=== PATIENT | male | born 1960 | race Caucasian/White ===

== ENCOUNTER 2021-04-24 10:55 | Emergency (ER) | payer BC, MEDICAID ==
[2021-04-24 11:30] VITALS: BP 137/86; PULSE 95
--- NOTE | 2021-04-24 11:33 | EDM.PDOCBH ---
ED HPI GENERAL MEDICAL PROBLEM - General Chief Complaint: Drug or Alcohol Abuse Stated Complaint: ALCOHOL WITHDRAWAL Time Seen by Provider: 04/24/21 11:30 Source of Information: Reports: Patient, Family History Limitations: Reports: No Limitations - History of Present Illness INITIAL COMMENTS - FREE TEXT/NARRATIVE: 60-year-old male with chronic problems with alcohol abuse, has been through detox and treatment in the past but has been drinking "off-and-on" for the past 2 years but is having trouble with inability to stop over the past several weeks. He is interested in going into detox. No other drug use, no other medical problems. Last drink was 24 hours ago, he is feeling nauseous and somewhat shaky. Onset: Unknown/Unsure Duration: Chronic - Related Data Allergies Allergy/AdvReac Type Severity Reaction Status Date / Time No Known Allergies Allergy Verified 04/24/21 11:30 Home Meds: Home Meds NK [No Known Home Meds] 04/24/21 [History] Past Medical History - Past Health History Medical/Surgical History: Denies Medical/Surgical History HEENT History: Reports: Impaired Vision Cardiovascular History: Reports: Hypertension Respiratory History: Reports: Sleep Apnea Gastrointestinal History: Reports: Other (See Below) Other Gastrointestinal History: barretts Genitourinary History: Reports: None Psychiatric History: Reports: Addiction Immunologic History: Reports: Other (See Below) Other Immunologic History: alcoholic hepatitis - Infectious Disease History Infectious Disease 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 Denies: Fever, Chills HEENT: Denies: Vision Change Respiratory: Denies: Shortness of Breath Cardiovascular: Denies: Chest Pain GI/Abdominal: Reports: Nausea. Denies: Flatus, Vomiting Musculoskeletal: Reports: No Symptoms Skin: Reports: No Symptoms Neurological: Reports: Headache (Mild headache) ED EXAM, BEHAVIORAL HEALTH - Physical Exam Exam: See Below Exam Limited By: No Limitations General Appearance: Alert, Anxious Eye Exam: Bilateral Eye: Normal Inspection (No jaundice) Head: Atraumatic Neck: Supple, Non-Tender Respiratory/Chest: Lungs Clear Cardiovascular: Regular Rate, Rhythm. No: Tachycardia GI/Abdominal: Soft, Non-Tender Extremities: Normal Inspection. No: Pedal Edema Neurological: Alert, No Motor/Sensory Deficits, Oriented x 3 Psychiatric: Alert, Restless Skin Exam: Warm, Dry COURSE, BEHAVIORAL HEALTH COMP - Course Vital Signs: Last Vital Signs Temp 96.0 F L 04/24/21 11:19 Pulse 95 04/24/21 11:19 Resp 16 04/24/21 11:19 BP 137/86 04/24/21 11:19 Pulse Ox 98 04/24/21 11:19 Orders, Labs, Meds: Laboratory Tests 04/24/21 04/24/21 04/24/21 Range/Units 11:40 11:41 12:21 Urine Opiates Screen Negative (NEGATIVE) Ur Oxycodone Screen Negative (NEGATIVE) Urine Methadone Screen Negative (NEGATIVE) Ur Propoxyphene Screen Negative (NEGATIVE) Ur Barbiturates Screen Negative (NEGATIVE) Ur Tricyclics Screen Negative (NEGATIVE) Ur Phencyclidine Scrn Negative (NEGATIVE) Ur Amphetamine Screen Negative (NEGATIVE) U Methamphetamines Scrn Negative (NEGATIVE) Urine MDMA Screen Negative (NEGATIVE) U Benzodiazepines Scrn Negative (NEGATIVE) U Cocaine Metab Screen Negative (NEGATIVE) U Marijuana (THC) Screen Negative (NEGATIVE) Ethyl Alcohol 94 mg/dL SARS CoV-2 RNA Rapid DYLON Negative Medications Discontinued Medications Generic Name Dose Route Start Last Admin Trade Name Gibran PRN Reason Stop Dose Admin Ondansetron HCl 4 mg 04/24/21 11:37 04/24/21 11:42 Ondansetron 4 Mg Tab.Dis PO 04/24/21 11:38 4 mg ONETIME ONE Administration Re-Assessment/Re-Exam: Urine drug screen, EtOH and rapid Covid were obtained. This patient is a good candidate for detox physically. EtOH is 0.094, Covid is negative. His significant other is going to transport him to [place] for detox and possible treatment. Departure - Departure Time of Disposition: 13:11 Disposition: Home, Self-Care 01 Clinical Impression: Alcohol abuse - Discharge Information Instructions: Alcohol Use Disorder Referrals: Terrence Roman NP [Primary Care Provider] - Forms: ED Department Discharge Care Plan Goals: Go directly out to [place] to be admitted for detox and possibly extended treatment. Sepsis Event Note (ED) - Evaluation Sepsis Screening Result: No Definite Risk - Focused Exam Vital Signs: Vital Signs Temp Pulse Resp BP Pulse Ox 04/24/21 11:19 96.0 F L 95 16 137/86 98
[2021-04-24] MEDS ORDERED: Ondansetron 4 MG Tab.DIS PO ONE (11:37)
== END 2021-04-24 13:11 | disposition home or self-care (01) ==
LOC: JP.ED 10:55
DX: F10.10 Alcohol abuse, uncomplicated (principal); I10 Essential (primary) hypertension; Z20.822 Contact with and (suspected) exposure to COVID-19; Y90.4 Blood alcohol level of 80-99 mg/100 ml
CPT/HCPCS: 36415; 80305; 80307; 87635; 99284; A9270; U0002